=== PATIENT | female | born 1995 | race Two or more races ===

== ENCOUNTER 2025-01-04 11:47 | Emergency (ER) | payer OTHER ==
[~2025-01-04] VITALS: Ht 160 cm; Wt 65.8 kg
[~2025-01-04 11:47] MED LIST: NAPR500T14 PO; PRENATAL CAPLE1 EACH PO
[2025-01-04] MEDS ORDERED: KETOROLAC TROMETHAMINE 30 MG VIAL IM STA (12:30)
[2025-01-04] MEDS ORDERED: ORPHENADRINE CITRATE 30 MG/ML AMPUL IM STA (12:31)
[2025-01-04] MEDS ORDERED: ORPHENADRINE CITRATE 30 MG/ML AMPUL ONE (12:46)
[2025-01-04] MEDS ORDERED: KETOROLAC TROMETHAMINE 30 MG VIAL ONE (12:46)
[2025-01-04 13:18] LABS: BASO % 0.3 % (0.1-1.2); EOS # 0.05 (0.04-0.54); EOS % 0.8 % (0.7-7.0); LYMPH # 2.83 (1.18-3.74); LYMPH % 47.1 % (19.3-53.1); MEAN PLATELET VOLUME 9.60 fl (9.4-12.4); MONO # 0.44 (0.24-0.82); MONO % 7.3 % (4.7-12.5); NEUT # 2.66 (1.56-6.13); NEUT % 44.3 % (34.0-71.1); RED CELL DISTRIBUTION WIDTH 13.2 % (11.6-14.4)
[2025-01-04 13:52] LABS: URINE APPEARANCE Cloudy; URINE BILIRRUBIN Negative (NEGATIVE); URINE BLOOD Negative; URINE COLOR Yellow; URINE GLUCOSE Negative (NEGATIVE); URINE KETONE Negative (NEGATIVE); URINE LEUKOCYTE Small; URINE NITRATE Negative; URINE PROTEIN Negative (NEGATIVE); URINE UROBILINOGEN 1.0 E.U./dl
[2025-01-04 13:53] LABS: URINE BACTERIA 698.3 uL (0.0-1933); URINE EPITHELIAL CELLS 13.0 uL (0.0-38.8); URINE RBC 3.9 uL (0.0-20.8); URINE WBC 45.5 uL (0.0-23.2)
[2025-01-04 14:07] LABS: URINE CAST 0.00 uL (0.0-1.40)
[2025-01-04 14:16] LABS: COVID-19 AG NEGATIVE (NEGATIVE)
[2025-01-04 14:51] LABS: ALT/SGPT 21 U/L (12-78); AST/SGOT 15 U/L (15-37); BILIRUBIN TOTAL 0.38 mg/dL (0.3-1.2); BUN CREA RATIO 19 (7.0-25.0); CREATININE SERUM 0.78 mg/dL (0.55-1.02); GFR 87.32; GLOBULINA 3.7 G/DL (2.4-3.5); GLUCOSE FASTING 67 mg/dL (65-100); OSMOLALITY SERUM 282 MOSM/KG (275-295)
== END 2025-01-04 21:03 | disposition left against medical advice (07) ==
LOC: ER 11:48
PROVIDERS: Physician Assistant Medical
DX: J06.9 Acute upper respiratory infection, unspecified (principal); N39.0 Urinary tract infection, site not specified; R05.9 Cough, unspecified; R50.9 Fever, unspecified; R30.0 Dysuria; R53.1 Weakness; Z20.822 Contact with and (suspected) exposure to COVID-19

== ENCOUNTER 2025-01-05 08:09 | Emergency (ER) | payer OTHER ==
[~2025-01-05] VITALS: Ht 160 cm; Wt 65.8 kg
[2025-01-05] MEDS ORDERED: KETOROLAC TROMETHAMINE 30 MG VIAL IM ONE (09:45)
[2025-01-05] MEDS ORDERED: KETOROLAC TROMETHAMINE 30 MG VIAL ONE (10:37)
== END 2025-01-05 12:09 | disposition home or self-care (01) ==
LOC: ER 08:09
DX: R07.89 Other chest pain (principal)